=== PATIENT | female | born 1945 | race Caucasian/White ===

== ENCOUNTER → 2017-12-12 | Outpatient (CLI) | payer MEDICARE ==
[2017-12-12 07:54] LABS: Blood Urea Nitrogen 13 mg/dL (7-17)
--- NOTE | 2017-12-12 09:01 | CT ---
EXAMINATION TYPE: CT sinus w con DATE OF EXAM: 12/12/2017 COMPARISON: NONE HISTORY: 72-year-old female Atypical face pain CT DLP: 615.9 mGycm Automated exposure control for dose reduction was used. TECHNIQUE: Axial views of the paranasal sinuses were obtained following administration of 100 mL Omni paque 300 IV contrast. Coronal reconstructions performed. FINDINGS: PARANASAL SINUSES: There is mild mucosal thickening within the ethmoid air cells and inferior maxillary sinuses. The fro ntal sinuses are hypoplastic. The sphenoid sinuses are clear. There is no air-fluid level. Reactive stephanie- osteogenesis is not seen. There is no destruction of the osseous pinto of the paranasal sinuses. The osteomeatal complexes are patent. Minimal rightward nasal septal deviation. The imaged brain and orbits are normal in appearance. Mastoid air cells and middle ear cavities are well pneumatized. Reformatted images confirm above findings. IMPRESSION: Mild mucosal thickening within the ethmoid air cells and inferior maxillary sinuses. Minimal rightwar d nasal septal deviation
--- NOTE | 2017-12-12 10:15 | FL ---
EXAMINATION: Cervical and Thoracic Esophagram DATE OF EXAM: 12/12/2017 CLINICAL INDICATION: 72-year-old female with dysphagia, difficulty swallowing with sensation of solid s sticking in the cervical esophagus. GERD. COMPARISON: None Total Fluoroscopy Time: 1.27 minutes. Total images: 30. FINDINGS: The swallowing mechanism is normal and hypopharyngeal anatomy is preserved. There is moderate anterio r cervical spondylosis minimally impressing on to the posterior wall of the cervical esophagus. The thoracic portion has a normal course and caliber. Mild tertiary peristaltic contractions are demo nstrated. There is a moderate-sized hiatal hernia with mild mucosal irregularity which could represent fold red undancy. No chula filling defect identified. Valsalva and positional maneuvers failed to elicit gastroesophageal reflux. This is not excluded as p ossibility. IMPRESSION: 1. Moderate sized hiatal hernia. 2. Mild mucosal irregularity within the hernia could represent fold redundancy or some changes relati ng to a regional gastritis. Direct visualization can be considered to exclude other mucosal abnormali ty if indicated.
== END | disposition home or self-care (01) ==
LOC: RADCTMAIN 07:00
PROVIDERS: ATTEND Otolaryngology
DX: J34.2 Deviated nasal septum (principal); J34.89 Other specified disorders of nose and nasal sinuses; K44.9 Diaphragmatic hernia without obstruction or gangrene
CPT/HCPCS: 82565; 84520; 74220; 36415; 70487; Q9967

== ENCOUNTER → 2018-07-03 | Outpatient (CLI) | payer MEDICARE ==
--- NOTE | 2018-07-13 11:12 | MM ---
Reason for exam: screening (asymptomatic). Last mammogram was performed 1 year and 8 months ago. History: Patient is postmenopausal. Reductions of both breasts, January 2007. Took estrogen for 1 month beginning at age 63. Physical Findings: A clinical breast exam by your physician is recommended on an annual basis and results should be correlated with mammographic findings. MG 3D Screening Mammo W/Cad Bilateral CC and MLO view(s) were taken. Prior study comparison: November 06, 2016, bilateral MG 3d screening mammo w/cad. November 10, 2013, bilateral digital screening mammo w/CAD. The breast tissue is heterogeneously dense. This may lower the sensitivity of mammography. Benign appearing bilateral calcifications. No suspicious abnormality. No significant changes when compared with prior studies. ASSESSMENT: Benign, BI-RAD 2 RECOMMENDATION: Routine screening mammogram of both breasts in 1 year.
== END | disposition home or self-care (01) ==
LOC: RADMAMWWP 09:56
PROVIDERS: ATTEND Family Medicine
DX: Z12.31 Encounter for screening mammogram for malignant neoplasm of breast (principal)
CPT/HCPCS: 77063; 77067

== ENCOUNTER → 2018-07-15 | Outpatient (CLI) | payer MEDICARE ==
--- NOTE | 2018-07-15 16:03 | BD ---
EXAMINATION TYPE: Axial Bone Density DATE OF EXAM: 07/15/2018 COMPARISON: Previous a 13/12/2013 CLINICAL HISTORY: Postmenopausal status Height: 67 Weight: 166.7 FRAX RISK QUESTIONS: Alcohol (3 or more units per day): no Family History (Parent hip fracture): no Glucocorticoids (More than 3mos): no (Ex: prednisone, prednisolone, methylprednisolone, dexamethasone, and hydrocortisone). History of Fracture in Adulthood: no Secondary Osteoporosis: 1. Type 1 Diabetes: no 2. Hyperthyroidism: no 3. Menopause before 45: no 4. Malnutrition: no 5. Chronic liver disease: no Rheumatoid Arthritis: no Current Tobacco Use: no RISK FACTORS HISTORY OF: Active: no Postmenopausal woman: age 55 Lost more than 2 inches in height since high school: no MEDICATIONS: reflux meds Additional History: EXAM MEASUREMENTS: Bone mineral densitometry was performed using the [employer]. Bone mineral density as measured about the Lumbar spine is: ----- L1-L4(G/cm2): 1.005 T Score Values are as follows: ----- L2: -1.3 ----- L3: -1.7 ----- L4: -1.7 ----- L1-L4: -1.5 Bone mineral density has: decreased-4.4 % since study of: 07.14.2014 Bone mineral density about the R hip (g/cm2): 0.811 Bone mineral density about the L hip (g/cm2): 0.830 T Score values are as follows: -----R Neck: -1.6 -----L Neck: -1.5 -----R Total: -0.8 -----L Total: -1.8 Bone mineral density has: decreased -0.7 % since study of: 07.14.2014 IMPRESSION: Osteopenia (T Score between -2.5 and -1). There is slightly increased risk of fracture and the patient may be considered for treatment. Re-Screen 2-5 years. NOTE: T-SCORE=SD OF THE YOUNG ADULT MEAN.
== END | disposition home or self-care (01) ==
LOC: RADBDWWP 11:14
PROVIDERS: ATTEND Family Medicine
DX: M85.89 Other specified disorders of bone density and structure, multiple sites (principal); Z78.0 Asymptomatic menopausal state
CPT/HCPCS: 77080

== ENCOUNTER → 2018-07-16 | Outpatient (CLI) | payer MEDICARE ==
[2018-07-16 08:47] LABS: Anisocytosis Marked; HCT 36.6 % (34.0-46.0); HGB 10.3 gm/dL (11.4-16.0); Hypochromasia Marked; MCH 19.7 pg (25.0-35.0); MCHC 28.1 g/dL (31.0-37.0); MCV 70.1 fL (80.0-100.0); Mean Platelet Volume 6.6; Microcytosis Marked; Platelet Count 397 k/uL (150-450); RBC 5.23 m/uL (3.80-5.40); WBC 6.1 k/uL (3.8-10.6)
[2018-07-16 08:52] LABS: RDW 29.5 % (11.5-15.5)
[2018-07-16 16:46] LABS: Iron Saturation 11.05 (12.00-45.00)
[2018-07-16 20:05] LABS: Hemoglobin A1C 4.5 % (4.0-6.0)
== END | disposition home or self-care (01) ==
LOC: LABWHC1 08:06
PROVIDERS: ATTEND Family Medicine
DX: D50.9 Iron deficiency anemia, unspecified (principal); R73.01 Impaired fasting glucose
CPT/HCPCS: 36415; 82607; 82728; 82747; 83036; 83540; 83550; 85027

== ENCOUNTER → 2018-08-18 | Outpatient (CLI) | payer MEDICARE ==
[2018-08-18 09:05] LABS: Appearance,Urine Clear (Clear); Bilirubin,Urine Negative (Negative); Blood,Urine Negative (Negative); Color,Urine Colorless; Glucose,Urine (UA) Negative (Negative); Ketones,Urine Negative (Negative); Leukocyte Esterase,Urine Negative (Negative); Nitrite,Urine Negative (Negative); Protein,Urine Negative (Negative); Specific Gravity,Urine 1.006 (1.001-1.035); Urobilinogen,Urine <2.0 mg/dL (<2.0)
[2018-08-18 09:12] LABS: Anisocytosis Marked; HCT 42.4 % (34.0-46.0); HGB 12.8 gm/dL (11.4-16.0); Hypochromasia Marked; MCH 24.1 pg (25.0-35.0); MCHC 30.2 g/dL (31.0-37.0); Mean Platelet Volume 7.4; Microcytosis Marked; Platelet Count 234 k/uL (150-450); RBC 5.31 m/uL (3.80-5.40); WBC 4.8 k/uL (3.8-10.6)
[2018-08-18 09:15] LABS: RDW 25.5 % (11.5-15.5)
[2018-08-18 09:16] LABS: MCV 79.7 fL (80.0-100.0)
[2018-08-18 09:21] LABS: ALT 23 U/L (9-52); AST 21 U/L (14-36); Albumin 4.3 g/dL (3.5-5.0); Alkaline Phosphatase 51 U/L (38-126); Anion Gap 8 mmol/L; Blood Urea Nitrogen 15 mg/dL (7-17); Calcium 9.8 mg/dL (8.4-10.2); Carbon Dioxide 30 mmol/L (22-30); Chloride 101 mmol/L (98-107); Cholesterol 218 mg/dL (<200); Glucose 91 mg/dL (74-99); HDL Cholesterol 64 mg/dL (40-60); LDL Cholesterol,Calculated 127 mg/dL (0-99); Potassium 4.4 mmol/L (3.5-5.1); Sodium 139 mmol/L (137-145); Total Bilirubin 0.3 mg/dL (0.2-1.3); Total Protein 7.3 g/dL (6.3-8.2); Triglycerides 135 mg/dL (<150)
[2018-08-18 17:07] LABS: Iron Saturation 17.02 (12.00-45.00)
== END | disposition home or self-care (01) ==
LOC: LABWHC1 07:42
PROVIDERS: ATTEND Family Medicine
DX: Z00.01 Encounter for general adult medical examination with abnormal findings (principal); E66.3 Overweight; R53.83 Other fatigue; D50.9 Iron deficiency anemia, unspecified
CPT/HCPCS: 36415; 80053; 80061; 81003; 82607; 82728; 82747; 83540; 83550; 85027

== ENCOUNTER → 2020-06-16 | Outpatient (CLI) | payer MEDICARE ==
[2020-06-16 10:13] LABS: Anisocytosis Slight; HCT 27.8 % (34.0-46.0); HGB 7.3 gm/dL (11.4-16.0); Hypochromasia Marked; MCH 17.3 pg (25.0-35.0); MCHC 26.3 g/dL (31.0-37.0); MCV 65.9 fL (80.0-100.0); Mean Platelet Volume 7.9; Microcytosis Marked; Platelet Count 407 k/uL (150-450); Poikilocytosis Slight; RBC 4.23 m/uL (3.80-5.40); RDW 17.3 % (11.5-15.5); WBC 6.5 k/uL (3.8-10.6)
[2020-06-16 16:51] LABS: % Iron Saturation 1.58 (12.00-45.00); African American GFR (CKD) 104.1 (60.0-200.0); Albumin 4.6 g/dL (3.80-4.90); Anion Gap 9.9 mmol/L (4.00-12.00); Calcium 9.4 mg/dL (8.7-10.3); Carbon Dioxide 24.1 mmol/L (21.6-31.8); Chol/HDL Ratio 2.09; Ferritin 1.7 ng/mL (10.0-291.0); Globulin 2.3 g/dL (1.6-3.3); Non-African American GFR(CKD) 89.8 (60.0-200.0); Potassium 4.3 mmol/L (3.5-5.5); Total Bilirubin 0.5 mg/dL (0.2-1.2); Total Protein 6.9 g/dL (6.2-8.2)
== END ==
LOC: LABWHC1 08:28
PROVIDERS: ATTEND Family Medicine
DX: D50.9 Iron deficiency anemia, unspecified (principal); E66.9 Obesity, unspecified
CPT/HCPCS: 36415; 80053; 80061; 82607; 82728; 82747; 83540; 83550; 85027

== ENCOUNTER 2020-06-19 16:42 | Inpatient (IN) | payer MEDICARE ==
[2020-06-19] MEDS ORDERED: PANTOPRAZOLE 40 MG/10 ML VIAL IVP STA (17:21)
--- NOTE | 2020-06-19 17:23 | ED ---
General Adult HPI - General Chief complaint: Recheck/Abnormal Lab/Rx Stated complaint: Low hemoglobin, Abd labs Time Seen by Provider: 06/19/20 16:52 Source: patient, RN notes reviewed Mode of arrival: ambulatory Limitations: no limitations - History of Present Illness Initial comments: Patient is a pleasant 75-year-old female presenting to the emergency department with fatigue. Patient states symptoms have been occurring for several days. Patient saw her doctor and had blood work done. Patient was told hemoglobin was low and come to the emergency department. Patient did have similar symptoms one year ago and hemoglobin was 5. Patient did have endoscopy with concern for stomach ulcer at that time. Patient denies any rectal bleeding or dark tarry stools. Patient states symptoms worsen with exertion. - Related Data Home Medications Medication Instructions Recorded Confirmed Acetaminophen [Tylenol] 1,000 mg PO BID PRN 06/19/20 06/19/20 Atorvastatin Calcium [Lipitor] 10 mg PO HS 06/19/20 06/19/20 Escitalopram [Lexapro] 10 mg PO DAILY 06/19/20 06/19/20 Allergies Allergy/AdvReac Type Severity Reaction Status Date / Time erythromycin base Allergy Unknown Rash/Hives Verified 06/19/20 18:03 Review of Systems ROS Statement: Those systems with pertinent positive or pertinent negative responses have been documented in the HPI. ROS Other: All systems not noted in ROS Statement are negative. Constitutional: Denies: fever ENT: Denies: ear pain Respiratory: Denies: cough Cardiovascular: Denies: chest pain Endocrine: Reports: fatigue Gastrointestinal: Denies: abdominal pain, hematemesis, melena, hematochezia Genitourinary: Denies: dysuria Musculoskeletal: Denies: back pain Skin: Denies: rash Neurological: Denies: weakness Past Medical History Past Medical History: GERD/Reflux, Osteoarthritis (OA) Additional Past Medical History / Comment(s): Currently being tested for hepat itis C-awaiting test results, small hiatal hernia, gastritis, bronchitis, fall with bilateral elbow injury, R hand fracture, hemorrhoids. History of Any Multi-Drug Resistant Organisms: None Reported Past Surgical History: Orthopedic Surgery, Tonsillectomy, Tubal Ligation Additional Past Surgical History / Comment(s): L knee arthroscopy for meniscus, L elbow injury with fluid removed, R foot lumpectomy, R wrist ganglion cyst, EGD/colonoscopy, Past Anesthesia/Blood Transfusion Reactions: No Reported Reaction Past Psychological History: No Psychological Hx Reported Past Alcohol Use History: Occasional Past Drug Use History: None Reported - Past Family History Mother Family Medical History: Coronary Artery Disease (CAD), Dementia Additional Family Medical History / Comment(s): Mother at the age of 89yrs. She had a problem with vaginal bleeding prior to her that was not able to be worked up. Father Family Medical History: Liver Disease Additional Family Medical History / Comment(s): Father at the age of 46yrs with CIRRHOSIS of the liver. ETOH abuse. General Exam Limitations: no limitations General appearance: alert, in no apparent distress Head exam: Present: normocephalic Eye exam: Present: normal appearance Neck exam: Present: normal inspection Respiratory exam: Present: normal lung sounds bilaterally Cardiovascular Exam: Present: regular rate, normal rhythm GI/Abdominal exam: Present: soft. Absent: distended, tenderness Extremities exam: Present: normal inspection Neurological exam: Present: alert Psychiatric exam: Present: normal affect, normal mood Skin exam: Present: normal color Course Vital Signs 06/19/20 06/19/20 16:46 17:41 Temperature 98.0 F Pulse Rate 91 74 Respiratory 18 18 Rate Blood Pressure 158/95 148/84 O2 Sat by Pulse 99 99 Oximetry EKG Findings - EKG Comments: EKG Findings:: Sinus rhythm at 73. GA 152. QRS 88. QT 392. QTC 431. Normal axis. Q wave in lead V4. No acute ST change. Medical Decision Making - Medical Decision Making Patient reevaluated and updated. Case discussed with Dr. Lucero, who will admit covering for Dr. patel - Lab Data Result diagrams: 06/19/20 17:32 06/19/20 17:32 Lab Results 06/19/20 06/19/20 06/19/20 Range/Units 17:32 17:32 17:32 WBC 6.5 (3.8-10.6) k/uL RBC 4.19 (3.80-5.40) m/uL Hgb 7.6 L (11.4-16.0) gm/dL Hct 27.1 L (34.0-46.0) % MCV 64.8 L (80.0-100.0) fL MCH 18.2 L (25.0-35.0) pg MCHC 28.0 L (31.0-37.0) g/dL RDW 17.3 H (11.5-15.5) % Plt Count 379 (150-450) k/uL Neutrophils % 55 % Lymphocytes % 29 % Monocytes % 10 % Eosinophils % 3 % Basophils % 1 % Neutrophils # 3.6 (1.3-7.7) k/uL Lymphocytes # 1.9 (1.0-4.8) k/uL Monocytes # 0.6 (0-1.0) k/uL Eosinophils # 0.2 (0-0.7) k/uL Basophils # 0.1 (0-0.2) k/uL Hypochromasia Marked Poikilocytosis Slight Anisocytosis Slight Microcytosis Marked PT 9.8 (9.0-12.0) sec INR 0.9 (<1.2) APTT 19.8 L (22.0-30.0) sec Sodium (137-145) mmol/L Potassium (3.5-5.1) mmol/L Chloride (98-107) mmol/L Carbon Dioxide (22-30) mmol/L Anion Gap mmol/L BUN (7-17) mg/dL Creatinine (0.52-1.04) mg/dL Est GFR (CKD-EPI)AfAm (>60 ml/min/1.73 sqM) Est GFR (CKD-EPI)NonAf (>60 ml/min/1.73 sqM) Glucose (74-99) mg/dL Calcium (8.4-10.2) mg/dL Total Bilirubin (0.2-1.3) mg/dL AST (14-36) U/L ALT (4-34) U/L Alkaline Phosphatase (38-126) U/L Total Protein (6.3-8.2) g/dL Albumin (3.5-5.0) g/dL Stool Occult Blood Negative (Negative) 06/19/20 Range/Units 17:32 WBC (3.8-10.6) k/uL RBC (3.80-5.40) m/uL Hgb (11.4-16.0) gm/dL Hct (34.0-46.0) % MCV (80.0-100.0) fL MCH (25.0-35.0) pg MCHC (31.0-37.0) g/dL RDW (11.5-15.5) % Plt Count (150-450) k/uL Neutrophils % % Lymphocytes % % Monocytes % % Eosinophils % % Basophils % % Neutrophils # (1.3-7.7) k/uL Lymphocytes # (1.0-4.8) k/uL Monocytes # (0-1.0) k/uL Eosinophils # (0-0.7) k/uL Basophils # (0-0.2) k/uL Hypochromasia Poikilocytosis Anisocytosis Microcytosis PT (9.0-12.0) sec INR (<1.2) APTT (22.0-30.0) sec Sodium 134 L (137-145) mmol/L Potassium 4.0 (3.5-5.1) mmol/L Chloride 102 (98-107) mmol/L Carbon Dioxide 24 (22-30) mmol/L Anion Gap 8 mmol/L BUN 16 (7-17) mg/dL Creatinine 0.52 (0.52-1.04) mg/dL Est GFR (CKD-EPI)AfAm >90 (>60 ml/min/1.73 sqM) Est GFR (CKD-EPI)NonAf >90 (>60 ml/min/1.73 sqM) Glucose 94 (74-99) mg/dL Calcium 9.5 (8.4-10.2) mg/dL Total Bilirubin 0.3 (0.2-1.3) mg/dL AST 26 (14-36) U/L ALT 18 (4-34) U/L Alkaline Phosphatase 63 (38-126) U/L Total Protein 7.3 (6.3-8.2) g/dL Albumin 4.7 (3.5-5.0) g/dL Stool Occult Blood (Negative) Disposition Clinical Impression: Symptomatic anemia Disposition: ADMITTED IP TO THIS HOSP Is patient prescribed a controlled substance at d/c from ED?: No Referrals: Rex Patel MD [Primary Care Provider] - 1-2 days Time of Disposition: 18:29 Decision Time: 18:29
[2020-06-19 17:53] LABS: ALT 18 U/L (4-34); AST 26 U/L (14-36); African American GFR (CKD) >90 (>60 ml/min/1.73 sqM); Albumin 4.7 g/dL (3.5-5.0); Alkaline Phosphatase 63 U/L (38-126); Anion Gap 8 mmol/L; Blood Urea Nitrogen 16 mg/dL (7-17); Calcium 9.5 mg/dL (8.4-10.2); Carbon Dioxide 24 mmol/L (22-30); Chloride 102 mmol/L (98-107); Glucose 94 mg/dL (74-99); Non-African American GFR(CKD) >90 (>60 ml/min/1.73 sqM); Sodium 134 mmol/L (137-145); Total Bilirubin 0.3 mg/dL (0.2-1.3); Total Protein 7.3 g/dL (6.3-8.2)
[2020-06-19 18:06] LABS: Anisocytosis Slight; Basophils # (A) 0.1 k/uL (0-0.2); Basophils % (A) 1 %; Eosinophils # (A) 0.2 k/uL (0-0.7); Eosinophils % (A) 3 %; HCT 27.1 % (34.0-46.0); HGB 7.6 gm/dL (11.4-16.0); Hypochromasia Marked; Lymphocytes # (A) 1.9 k/uL (1.0-4.8); Lymphocytes % (A) 29 %; MCH 18.2 pg (25.0-35.0); MCV 64.8 fL (80.0-100.0); Mean Platelet Volume 7.1; Microcytosis Marked; Monocytes # (A) 0.6 k/uL (0-1.0); Monocytes % (A) 10 %; Neutrophils # (A) 3.6 k/uL (1.3-7.7); Neutrophils % (A) 55 %; Platelet Count 379 k/uL (150-450); Poikilocytosis Slight; RBC 4.19 m/uL (3.80-5.40); RDW 17.3 % (11.5-15.5); WBC 6.5 k/uL (3.8-10.6)
[2020-06-19 18:17] LABS: INR 0.9 (<1.2); Prothrombin Time 9.8 sec (9.0-12.0)
[2020-06-19 18:19] LABS: Partial Thromboplastin Time 19.8 sec (22.0-30.0)
[2020-06-19] MEDS ORDERED: SODIUM CHLORIDE 0.9% 1,000 ML IV SCH (18:30)
[2020-06-19] MEDS ORDERED: NALOXONE 0.4 MG/ML 1 ML VIAL IV PRN (18:30)
[2020-06-19] MEDS ORDERED: ACETAMINOPHEN TAB 500 MG TAB PO PRN (21:04)
[2020-06-19] MEDS ORDERED: LACTULOSE 20 GM/30 ML CUP PO PRN (21:05)
[2020-06-19] MEDS ORDERED: CALCIUM CARBONATE 500 MG CHEWABLE PO PRN (21:05)
[2020-06-19] MEDS ORDERED: MELATONIN 3 MG TABLET PO PRN (21:05)
[2020-06-19] MEDS ORDERED: ONDANSETRON 4 MG/2 ML VIAL IVP PRN (21:05)
[2020-06-19] MEDS ORDERED: MAGNESIUM HYDROXIDE 2,400 MG/10 ML CUP PO PRN (21:05)
[2020-06-19] MEDS ORDERED: MAG HYDROX/AL HYDROX/SIMETH 30 ML CUP PO PRN (21:05)
[2020-06-19] MEDS ORDERED: ATORVASTATIN 10 MG TAB PO SCH (21:15)
[2020-06-19] MEDS: ALPRAZolam 0.25 MG TAB PO PRN (23:40)
[2020-06-20] MEDS: ESCITALOPRAM 10 MG TAB PO SCH ×2 (08:18→08:24)
[2020-06-20 08:49] LABS: Anisocytosis Slight; Basophils # (A) 0.1 k/uL (0-0.2); Basophils % (A) 2 %; Eosinophils # (A) 0.1 k/uL (0-0.7); Eosinophils % (A) 3 %; HCT 28.9 % (34.0-46.0); HGB 8.2 gm/dL (11.4-16.0); Hypochromasia Marked; Lymphocytes # (A) 1.1 k/uL (1.0-4.8); Lymphocytes % (A) 25 %; MCH 18.9 pg (25.0-35.0); MCHC 28.2 g/dL (31.0-37.0); MCV 67.1 fL (80.0-100.0); Microcytosis Marked; Monocytes # (A) 0.5 k/uL (0-1.0); Monocytes % (A) 10 %; Neutrophils # (A) 2.7 k/uL (1.3-7.7); Neutrophils % (A) 58 %; Platelet Count 342 k/uL (150-450); Poikilocytosis Moderate; RBC 4.31 m/uL (3.80-5.40); RDW 18.5 % (11.5-15.5); WBC 4.6 k/uL (3.8-10.6)
[2020-06-20] MEDS ORDERED: PANTOPRAZOLE 40 MG/10 ML VIAL IV SCH (09:00)
[2020-06-20 10:37] VITALS: BP 121/74; PULSE 80; RESP 16; TEMP 98.1
[2020-06-20] MEDS: ALPRAZolam 0.25 MG TAB PO PRN (10:57)
[2020-06-20] MEDS ORDERED: PANTOPRAZOLE 40 MG TABLET PO SCH (17:30)
--- NOTE | 2020-06-21 00:52 | P.HPIM ---
History of Present Illness H&P Date: 06/20/20 Chief Complaint: tired History of presenting complaint: This is a pleasant 75-year-old patient of Dr. Patel. Patient presents with putting on some weight last 2 weeks. Feels tired. Short of breath. A bit rundown. Patient was in [place] for the winter. Because of the COVID lockdown has been drinking quite a bit of wine.. Patient about a year ago had EGD by Dr. felipe was found to have hiatal hernia and ulcers at [facility]. She thinks a colonoscopy was unremarkable.. Patient's hemoglobin was 7.6 on presentation. Because of symptoms was given a unit of blood. Pending much better this morning. No nausea vomiting. No abdominal pain. Review of systems: GEN.: [Tired EYES: None HEENT: None NECK: None RESPIRATORY: Short of breath CARDIOVASCULAR: None GASTROINTESTINAL: None GENITOURINARY: None MUSCULOSKELETAL: None LYMPHATICS: None HEMATOLOGICAL: None PSYCHIATRY: None NEUROLOGICAL: None Past medical history to include: Heart hernia, peptic ulcer disease, GERD, osteoarthritis, hemorrhoids Social history: . Patient smoked for 33 years stopped in 1999. Has been drinking somewhat excessive wine recently. Physical examination: VITAL SIGNS: 98, 91, 18, 158/95, 99% room air GENERAL: BMI 26.9, sitting up awake. EYES: [Pupils equal. Conjunctiva pale l. HEENT: External appearance of nose and ears normal, oral cavity grossly normal. NECK: JVD not raised; masses not palpable. HEART: First and second heart sounds are normal; no edema. LUNGS: Respiratory rate normal; clear to auscultation. ABDOMEN: Soft, nontender, liver spleen not palpable, no masses palpable. PSYCH: Alert and oriented x3; mood and affect normal. NEUROLOGICAL: Cranial nerves grossly intact; no facial asymmetry, power and sensation grossly intact. LYMPHATICS: No lymph nodes palpable in the axilla and neck INVESTIGATIONS, reviewed in the clinical context: White count 6.5 hemoglobin 7.6 potassium 4 creatinine 0.52 Stool-occultl blood-negative COVID 19 PCR not detected Assessment: -Acute symptomatic anemia likely from a slow GI bleed active from peptic ulcer disease and/or esophagitis in a patient with EGD last year and was found to have the same. Patient has been drinking some significant amount of alcohol in terms of finding likely precipitating the same. -Alcohol use disorder -Hiatal hernia -Peptic ulcer disease -Primary osteoarthritis -mood disorder Plan: Patient was ordered a unit of blood. Put on PPI. IV fluids. Past Medical History Past Medical History: GERD/Reflux, Osteoarthritis (OA) Additional Past Medical History / Comment(s): Small hiatal hernia, gastritis, bronchitis, fall with bilateral elbow injury, R hand fracture, hemorrhoids. History of Any Multi-Drug Resistant Organisms: None Reported Past Surgical History: Orthopedic Surgery, Tonsillectomy, Tubal Ligation Additional Past Surgical History / Comment(s): L knee arthroscopy for meniscus, L elbow injury with fluid removed, R foot lumpectomy, R wrist ganglion cyst, EGD/colonoscopy, Past Anesthesia/Blood Transfusion Reactions: No Reported Reaction Past Psychological History: No Psychological Hx Reported Additional Psychological History / Comment(s): "I have moodiness if I don't take my lexapro." Pt resides with her spouse. She is independent. Smoking Status: Former smoker Past Alcohol Use History: Heavy Additional Past Alcohol Use History / Comment(s): Binge drinks wine, about a bottle each time. Pt states she started smoking in 1966 and quit 11/06/00. Past Drug Use History: None Reported - Past Family History Mother Family Medical History: Coronary Artery Disease (CAD), Dementia Additional Family Medical History / Comment(s): Mother at the age of 89yrs. She had a problem with vaginal bleeding prior to her that was not able to be worked up. Father Family Medical History: Liver Disease Additional Family Medical History / Comment(s): Father at the age of 46yrs with CIRRHOSIS of the liver. ETOH abuse. Medications and Allergies Home Medications Medication Instructions Recorded Confirmed Type Acetaminophen [Tylenol] 1,000 mg PO BID PRN 06/19/20 06/19/20 History Atorvastatin Calcium [Lipitor] 10 mg PO HS 06/19/20 06/19/20 History Escitalopram [Lexapro] 10 mg PO DAILY 06/19/20 06/19/20 History Calcium Carbonate [Tums] 500 mg PO Q4HR PRN chew 06/20/20 Rx Pantoprazole [Protonix] 40 mg PO AC-BID #60 tablet. 06/20/20 Rx Allergies Allergy/AdvReac Type Severity Reaction Status Date / Time erythromycin base Allergy Unknown Rash/Hives Verified 06/19/20 18:03 Physical Exam Vitals: Vital Signs Temp Pulse Pulse Resp BP BP Pulse Ox 06/20/20 05:00 97.8 F 67 18 149/80 98 06/20/20 01:14 97.8 F 76 19 137/76 97 06/19/20 22:55 98.2 F 16 134/71 95 06/19/20 22:25 98.2 F 79 18 138/77 97 06/19/20 22:15 98 F 78 17 147/64 98 06/19/20 21:05 98 06/19/20 20:00 98.0 F 74 14 143/82 98 06/19/20 19:05 84 18 148/84 97 06/19/20 17:41 74 18 148/84 99 06/19/20 16:46 98.0 F 91 18 158/95 99 Intake and Output 06/19/20 06/20/20 06/20/20 22:59 06:59 14:59 Intake Total 640 1460 Balance 640 1460 Intake: Intake, IV Titration 40 60 Amount Sodium Chloride 0.9% 1, 40 60 000 ml @ 20 mls/hr IV . Q24H [facility] Rx#:[id number] Oral 600 1090 Blood Product 0 310 Rc As-1 Unit 0 310 [id number] Other: Voiding Method Toilet Toilet # Voids 1 1 Weight 80.286 kg Results CBC & Chem 7: 06/20/20 07:35 06/19/20 17:32 Labs: Abnormal Lab Results - Last 24 Hours (Table) 06/19/20 06/19/20 06/19/20 Range/Units 17:21 17:32 17:32 Hgb 7.6 L (11.4-16.0) gm/dL Hct 27.1 L (34.0-46.0) % MCV 64.8 L (80.0-100.0) fL MCH 18.2 L (25.0-35.0) pg MCHC 28.0 L (31.0-37.0) g/dL RDW 17.3 H (11.5-15.5) % APTT 19.8 L (22.0-30.0) sec Sodium (137-145) mmol/L Crossmatch See Detail 06/19/20 06/20/20 Range/Units 17:32 07:35 Hgb 8.2 L (11.4-16.0) gm/dL Hct 28.9 L (34.0-46.0) % MCV 67.1 L (80.0-100.0) fL MCH 18.9 L (25.0-35.0) pg MCHC 28.2 L (31.0-37.0) g/dL RDW 18.5 H (11.5-15.5) % APTT (22.0-30.0) sec Sodium 134 L (137-145) mmol/L Crossmatch Thrombosis Risk Factor Assmnt - Choose All That Apply Each Factor Represents 1 point: Obesity (BMI >25) Each Risk Factor Represents 2 Points: Age 61-74 years Other congenital or acquired thrombophilia - If yes, enter type in comment: No Thrombosis Risk Factor Assessment Total Risk Factor Score: 3 Thrombosis Risk Factor Assessment Level: Moderate Risk
--- NOTE | 2020-06-21 00:54 | P.DS ---
Providers Date of admission: 06/19/20 18:30 Expected date of discharge: 06/20/20 Attending physician: Rick Lucero [facility] [place] Course: Chief Complaint: tired History of presenting complaint: This is a pleasant 75-year-old patient of Dr. Patel. Patient presents with putting on some weight last 2 weeks. Feels tired. Short of breath. A bit rundown. Patient was in [place] for the winter. Because of the COVID lockdown has been drinking quite a bit of wine.. Patient about a year ago had EGD by Dr. stein was found to have hiatal hernia and ulcers at [facility]. She thinks a colonoscopy was unremarkable.. Patient's hemoglobin was 7.6 on presentation. Because of symptoms was given a unit of blood. Pending much better this morning. No nausea vomiting. No abdominal pain. patient received a unit of blood. Patient came to go home. Discussed with -no overt manifestation of active bleeding. Patient is clinically stable. He will do a EGD colonoscopy as an outpatient. This was discussed with the patient.patient to take PPIs. Strongly advised against use of alcohol. Discussion and discharge planning more than 35 minutes Physical examination: VITAL SIGNS: 98, 74, 14, 143/82, 98% on room air GENERAL: BMI 26.9, sitting up awake. EYES: [Pupils equal. Conjunctiva pale . HEENT: External appearance of nose and ears normal, oral cavity grossly normal. NECK: JVD not raised; masses not palpable. HEART: First and second heart sounds are normal; no edema. LUNGS: Respiratory rate normal; clear to auscultation. ABDOMEN: Soft, nontender, liver spleen not palpable, no masses palpable. PSYCH: Alert and oriented x3; mood and affect normal. INVESTIGATIONS, reviewed in the clinical context: Hemoglobin 8.2 Admission testing White count 6.5 hemoglobin 7.6 potassium 4 creatinine 0.52 Stool-occultl blood-negative COVID 19 PCR not detected Assessment: -Acute symptomatic anemia likely from a slow GI bleed active from peptic ulcer disease and/or esophagitis in a patient with EGD last year and was found to have the same. Patient has been drinking some significant amount of alcohol in terms of finding likely precipitating the same. -Alcohol use disorder -Hiatal hernia -Peptic ulcer disease -Primary osteoarthritis -mood disorder disposition: Home Patient Condition at Discharge: Stable Plan - Discharge Summary Discharge Rx Participant: No New Discharge Prescriptions: New Pantoprazole [Protonix] 40 mg PO AC-BID #60 tablet. Calcium Carbonate [Tums] 500 mg PO Q4HR PRN chew PRN Reason: Dyspepsia Continue Atorvastatin Calcium [Lipitor] 10 mg PO HS Acetaminophen [Tylenol] 1,000 mg PO BID PRN PRN Reason: Pain Escitalopram [Lexapro] 10 mg PO DAILY Discharge Medication List Acetaminophen [Tylenol] 1,000 mg PO BID PRN 06/19/20 [History] Atorvastatin Calcium [Lipitor] 10 mg PO HS 06/19/20 [History] Escitalopram [Lexapro] 10 mg PO DAILY 06/19/20 [History] Calcium Carbonate [Tums] 500 mg PO Q4HR PRN chew 06/20/20 [Rx] Pantoprazole [Protonix] 40 mg PO AC-BID #60 tablet. 06/20/20 [Rx] Follow up Appointment(s)/Referral(s): Leonard Stein DO [Doctor of Osteopathic Medicine] - 06/28/20 2:15 pm Rex Patel MD [Primary Care Provider] - 06/23/20 11:40 am Patient Instructions/Handouts: Iron Rich Diet (GEN), Anemia (GEN), Alcohol Dependence (GEN) Activity/Diet/Wound Care/Special Instructions: cbc blood work - 7 days no alcohol Rise from bed or chair slowly, sit first before rising. Drink plenty of fluids, avoid alcoholic beverages. Be mindful of falling. Follow up with Dr Stein as an out patient so that he can schedule you for a scope. Discharge Disposition: HOME SELF-CARE
--- NOTE | 2020-06-22 07:24 | CDI ---
Documentation Clarification Form Date: 06/21/20 From: Nandini Arvizu Phone: If you have a question about this query, please contact Skye Kelley, Application Developer at [phone] between 8am and 5pm. Admit Date: 06/19/20 Discharge Date:06/20/20 Patient Name: Juliette Cheung Visit Number: [id number] ATTENTION: The Clinical Documentation Specialists (CDI) and [facility] Coding Staff appreciate your assistance in clarifying documentation. Please respond to the clarification below the line at the bottom and electronically sign. The CDI & [facility] Coding staff will review the response and follow-up if needed. Please note: Queries are made part of the Legal Health Record. If you have any questions, please contact the author of this message via ITS. Dear Dr. Lucero Alcohol use disorder is documented in the H&P and discharge summary. Documentation also states the patient has been drinking some significant amount of alcohol. History/Risk Factors: History of alcohol use Clinical Indicators: PUD, esophagitis, alcohol likely precipitating GI bleed Labs: Hgb/Hct 7.6/27.1 Treatment: NS at 20 mls/hr In your professional opinion, can you please clarify if the above clinical indicators and treatment signify any of the following? Alcohol dependence Alcohol abuse Other, please specify Unable to determine AND Evidence of thiamine deficiency due to chronic alcohol use/alcoholism Prophylactic treatment of potential thiamine deficiency associated with alcohol use/alcoholism Unable to determine Other, please specify See discharge summary-no further change in documentation needed MTDD
== END 2020-06-20 12:42 | disposition home or self-care (01) | DRG 811 ==
LOC: EC 16:42 → 5NMEDONC 18:30 → 6PED 06-20 10:18
PROVIDERS: ADMIT Hospitalist; ATTEND Hospitalist
DX: D50.0 Iron deficiency anemia secondary to blood loss (chronic) (principal); K27.4 Chronic or unspecified peptic ulcer, site unspecified, with hemorrhage; F39 Unspecified mood [affective] disorder; K44.9 Diaphragmatic hernia without obstruction or gangrene; M19.91 Primary osteoarthritis, unspecified site; K64.9 Unspecified hemorrhoids; K21.0 Gastro-esophageal reflux disease with esophagitis; K22.8 Other specified diseases of esophagus; Z72.89 Other problems related to lifestyle; Z20.828 Contact with and (suspected) exposure to other viral communicable diseases; Z79.899 Other long term (current) drug therapy; F10.10 Alcohol abuse, uncomplicated; Z87.891 Personal history of nicotine dependence; Z98.51 Tubal ligation status; Z90.89 Acquired absence of other organs; Z91.81 History of falling; Z82.49 Family history of ischemic heart disease and other diseases of the circulatory system; Z82.0 Family history of epilepsy and other diseases of the nervous system; Z83.79 Family history of other diseases of the digestive system; Z81.1 Family history of alcohol abuse and dependence
CPT/HCPCS: 36415; 80053; 82272; 85025; 85610; 85730; 86850; 86900; 86901; 86920; 93005; 96374; 99285

== ENCOUNTER → 2020-06-26 | Outpatient (CLI) | payer MEDICARE ==
[2020-06-26 10:15] LABS: Anisocytosis Moderate; HCT 31.9 % (34.0-46.0); HGB 8.9 gm/dL (11.4-16.0); Hypochromasia Marked; MCHC 27.9 g/dL (31.0-37.0); Mean Platelet Volume 6.9; Microcytosis Marked; Platelet Count 361 k/uL (150-450); Poikilocytosis Slight; RBC 4.69 m/uL (3.80-5.40); RDW 20.2 % (11.5-15.5); WBC 6.7 k/uL (3.8-10.6)
[2020-06-26 17:50] LABS: % Iron Saturation 2.81 (12.00-45.00); Ferritin 31.5 ng/mL (10.0-291.0)
== END | disposition home or self-care (01) ==
LOC: LABWHC1 08:06
PROVIDERS: ATTEND Family Medicine
DX: D50.9 Iron deficiency anemia, unspecified (principal)
CPT/HCPCS: 36415; 82607; 82728; 82747; 83540; 83550; 85027

== ENCOUNTER → 2020-07-17 | Outpatient (CLI) | payer MEDICARE ==
[2020-07-17 07:42] LABS: Anisocytosis Moderate; HCT 32.6 % (34.0-46.0); HGB 9.2 gm/dL (11.4-16.0); Hypochromasia Marked; MCH 19.3 pg (25.0-35.0); MCHC 28.2 g/dL (31.0-37.0); MCV 68.5 fL (80.0-100.0); Mean Platelet Volume 7.3; Microcytosis Marked; Platelet Count 352 k/uL (150-450); Poikilocytosis Slight; RBC 4.76 m/uL (3.80-5.40); RDW 21.2 % (11.5-15.5); WBC 5.1 k/uL (3.8-10.6)
[2020-07-17 10:27] LABS: % Iron Saturation 3.62 (12.00-45.00); African American GFR (CKD) 104.1 (60.0-200.0); Albumin 4.6 g/dL (3.80-4.90); Anion Gap 8.4 mmol/L (4.00-12.00); Calcium 9.5 mg/dL (8.7-10.3); Carbon Dioxide 26.6 mmol/L (21.6-31.8); Chol/HDL Ratio 2.65; Globulin 2.3 g/dL (1.6-3.3); LDL Cholesterol,Calculated 79.8 mg/dL (0.0-131.0); Non-African American GFR(CKD) 89.8 (60.0-200.0); Potassium 4.4 mmol/L (3.5-5.5); Total Bilirubin 0.4 mg/dL (0.2-1.2); Total Protein 6.9 g/dL (6.2-8.2); VLDL Calculation 22.2 mg/dL (5.00-40.00)
[2020-07-17 10:39] LABS: Ferritin 3.3 ng/mL (10.0-291.0)
== END | disposition home or self-care (01) ==
LOC: LABWHC1 07:11
PROVIDERS: ATTEND Family Medicine
DX: Z00.01 Encounter for general adult medical examination with abnormal findings (principal); D50.9 Iron deficiency anemia, unspecified; E66.3 Overweight
CPT/HCPCS: 36415; 80053; 80061; 82607; 82728; 82747; 83540; 83550; 85027

== ENCOUNTER → 2020-07-25 | Outpatient (CLI) | payer MEDICARE ==
--- NOTE | 2020-07-25 16:03 | US ---
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 Patient states she has a cyst on her l eft kidney that was found during a CT in [place]. EXAM MEASUREMENTS: Right Kidney: 11.1 x 5.2 x 4.6 cm Left Kidney: 10.7 x 5.7 x 4.6 cm Right Kidney: no hydronephrosis or masses seen Left Kidney: no hydronephrosis, 2.2 x 1.9 x 1.9cm cystic area mid pole, small 1.2cm cystic area later al mid pole. Bladder: appears wnl Bilateral Jets seen: no There is no evidence for hydronephrosis at this point in time. No nephrolithiasis is seen. No johana rning solid masses are identified. The urinary bladder is anechoic. Bilateral ureteral jets are not seen. Technologist identifies 2 small thin-walled cyst in the left kidney measuring between 1 and 2 cm in size. IMPRESSION: No concerning solid or cystic renal mass on today's study.
== END | disposition home or self-care (01) ==
LOC: RADUSWWP 15:08
DX: D17.71 Benign lipomatous neoplasm of kidney (principal)
CPT/HCPCS: 76770

== ENCOUNTER → 2021-08-17 | Outpatient (CLI) | payer MEDICARE ==
--- NOTE | 2021-08-20 09:37 | MM ---
Reason for exam: screening (asymptomatic). Last mammogram was performed 3 years and 1 month ago. History: Patient is postmenopausal. Reductions of both breasts, January 2007. Took estrogen for 1 month beginning at age 63. Physical Findings: A clinical breast exam by your physician is recommended on an annual basis and results should be correlated with mammographic findings. MG 3D Screening Mammo W/Cad Bilateral CC and MLO view(s) were taken. Prior study comparison: July 03, 2018, bilateral MG 3d screening mammo w/cad. The breast tissue is heterogeneously dense. This may lower the sensitivity of mammography. There are benign appearing round dystrophic calcifications bilaterally. There is no discrete abnormality. ASSESSMENT: Benign, BI-RAD 2 RECOMMENDATION: Routine screening mammogram of both breasts in 1 year.
== END | disposition home or self-care (01) ==
LOC: RADMAMWWP 09:45
PROVIDERS: ATTEND Family Medicine
DX: Z12.31 Encounter for screening mammogram for malignant neoplasm of breast (principal)
CPT/HCPCS: 77063; 77067

== ENCOUNTER → 2021-08-24 | Outpatient (CLI) | payer MEDICARE ==
[2021-08-24 07:48] LABS: Anisocytosis Slight; HCT 35.8 % (34.0-46.0); HGB 10.9 gm/dL (11.4-16.0); Hypochromasia Marked; MCH 25.1 pg (25.0-35.0); MCHC 30.4 g/dL (31.0-37.0); MCV 82.7 fL (80.0-100.0); Mean Platelet Volume 7.1; Platelet Count 412 k/uL (150-450); Poikilocytosis Moderate; RBC 4.32 m/uL (3.80-5.40); RDW 17.8 % (11.5-15.5); WBC 5.6 k/uL (3.8-10.6)
== END | disposition home or self-care (01) ==
LOC: LABWHC1 07:13
PROVIDERS: ATTEND Family Medicine
DX: D64.9 Anemia, unspecified (principal)
CPT/HCPCS: 36415; 85027

== ENCOUNTER → 2022-08-02 | Outpatient (CLI) | payer MEDICARE | END | disposition home or self-care (01) | LOC: RADMAMWWP 07:23 | PROVIDERS: ATTEND Family Medicine | DX: Z53.9 Procedure and treatment not carried out, unspecified reason (principal) ==

== ENCOUNTER → 2022-09-30 | Outpatient (CLI) | payer MEDICARE ==
--- NOTE | 2022-09-30 11:30 | BD ---
EXAMINATION TYPE: Axial Bone Density DATE OF EXAM: 09/30/2022 COMPARISON: NONE CLINICAL HISTORY: 77 years year old Female. ICD-10 CODE: M89.9 unsp disorder of bone Height: 57 Weight: 170 FRAX RISK QUESTIONS: Alcohol (3 or more units per day): NO Family History (Parent hip fracture): NO Glucocorticoids (More than 3mos): NO (Ex: prednisone, prednisolone, methylprednisolone, dexamethasone, and hydrocortisone). History of Fracture in Adulthood: NO Rheumatoid Arthritis: NO Current Tobacco Use: NO RISK FACTORS HISTORY OF: Family History of Osteoporosis: YES Active: YES Diet low in dairy products/other sources of calcium: NO Postmenopausal woman: YES Take estrogen and/or progesterone medications: IN PAST How lon Lost more than 2 inches in height since high school: NO MEDICATIONS: Additional Medications: YES REFLUX ,ZOLOFT EXAM MEASUREMENTS: Bone mineral densitometry was performed using the [employer]. Bone mineral density as measured about the Lumbar spine is: ----- L1-L4(G/cm2): 1.037 T Score Values are as follows: ----- L1: -1.6 ----- L2: -1.5 ----- L3: -1.1 ----- L4: -0.9 ----- L1-L4: -1.2 Bone mineral density has: Increased 3.2% since study of: 07/15/2018 Bone mineral density about the R hip (g/cm2): 0.875 Bone mineral density about the L hip (g/cm2): 0.865 T Score values are as follows: -----R Neck: -1.9 -----L Neck: -2.2 -----R Total: -1.1 -----L Total: -1.1 Bone mineral density has: Decreased -3.2% since study of: 07/15/2018 FRAX%s: The graph provided illustrates a 13.7% chance for a major osteoporotic fx and a 3.5% chance f or the hips probability for fx in 10 years time. IMPRESSION: Osteopenia (T Score between -2.5 and -1). There is slightly increased risk of fracture and the patient may be considered for treatment. Re-Screen 2-5 years. NOTE: T-SCORE=SD OF THE YOUNG ADULT MEAN.
== END | disposition home or self-care (01) ==
LOC: RADBDWWP 10:22
PROVIDERS: ATTEND Family Medicine
DX: M85.89 Other specified disorders of bone density and structure, multiple sites (principal); Z78.0 Asymptomatic menopausal state
CPT/HCPCS: 77080

== ENCOUNTER → 2022-10-04 | Outpatient (CLI) | payer MEDICARE ==
--- NOTE | 2022-10-04 16:47 | US ---
EXAMINATION TYPE: US venous doppler duplex LE RT DATE OF EXAM: 10/04/2022 4:30 PM COMPARISON: NONE CLINICAL HISTORY: R60.9 EDEMA, UNSPECIFIED. right foot surgery, right leg pain and edema SIDE PERFORMED: right TECHNIQUE: The lower extremity deep venous system is examined utilizing real time linear array sonog heber with graded compression, doppler sonography and color-flow sonography. VESSELS IMAGED: Common Femoral Vein Deep Femoral Vein Greater Saphenous Vein * Femoral Vein Popliteal Vein Small Saphenous Vein * Proximal Calf Veins (* superficial vessels) Right Leg: no evidence of DVT IMPRESSION: No sign of deep vein thrombosis in the right leg
== END | disposition home or self-care (01) ==
LOC: RADUSWWP 16:07
PROVIDERS: ATTEND Orthopaedic Surgery Foot and Ankle Surgery
DX: Z47.89 Encounter for other orthopedic aftercare (principal); M79.661 Pain in right lower leg; R60.9 Edema, unspecified

== ENCOUNTER 2024-04-24 12:15 | Emergency (ER) | payer MEDICARE ==
[2024-04-24 12:34] VITALS: TEMP 98.5
--- NOTE | 2024-04-24 13:03 | ED ---
General Adult HPI - General Chief complaint: Fall Stated complaint: fell, head abbrasion and hurt left elbow Time Seen by Provider: 04/24/24 12:31 Source: patient, RN notes reviewed Mode of arrival: ambulatory Limitations: physical limitation - History of Present Illness Initial comments: Patient is a pleasant 79-year-old female presenting to the emergency department with concerns for fall. Incident occurred prior to arrival. Patient had socks on and slipped on the floor. Patient did strike the left side of her head gently. No headache. No loss of consciousness. No confusion. No weakness. No visual changes. No nausea or vomiting. Patient did sustain a small laceration by her left eyebrow. Patient also hurt her left elbow. Patient is ambulatory. No neck or back pain. No chest pain or dyspnea. No abdominal pain. Last tetanus immunization was 5 years ago. - Related Data Home Medications Medication Instructions Recorded Confirmed Acetaminophen [Tylenol] 1,000 mg PO BID PRN 06/19/20 06/23/23 Atorvastatin Calcium [Lipitor] 10 mg PO HS 06/19/20 06/23/23 Escitalopram [Lexapro] 10 mg PO DAILY 06/19/20 06/23/23 Previous Rx's Medication Instructions Recorded Pantoprazole [Protonix] 40 mg PO AC-BID #60 tablet. 06/20/20 Allergies Allergy/AdvReac Type Severity Reaction Status Date / Time erythromycin base Allergy Unknown Rash/Hives Verified 04/24/24 12:26 Review of Systems ROS Statement: Those systems with pertinent positive or pertinent negative responses have been documented in the HPI. ROS Other: All systems not noted in ROS Statement are negative. Constitutional: Denies: fever Eyes: Denies: eye pain ENT: Denies: ear pain Respiratory: Denies: cough Cardiovascular: Denies: chest pain Neurological: Denies: headache, weakness, numbness, paresthesias, confusion, abnormal gait, vertigo Past Medical History Past Medical History: Blood Disorder, GERD/Reflux, Osteoarthritis (OA) Additional Past Medical History / Comment(s): Small hiatal hernia, gastritis, bronchitis, fall with bilateral elbow injury, R hand fracture, hemorrhoids. IRON DEFICIENCY ANEMIA. History of Any Multi-Drug Resistant Organisms: None Reported Past Surgical History: Hernia Repair, Orthopedic Surgery, Tonsillectomy, Tubal Ligation Additional Past Surgical History / Comment(s): L knee arthroscopy for meniscus, L elbow injury with fluid removed, R foot lumpectomy, R wrist ganglion cyst, EGD/colonoscopy, Past Anesthesia/Blood Transfusion Reactions: No Reported Reaction Past Psychological History: No Psychological Hx Reported Smoking Status: Never smoker Past Alcohol Use History: None Reported Past Drug Use History: None Reported - Past Family History Mother Family Medical History: Coronary Artery Disease (CAD), Dementia Additional Family Medical History / Comment(s): Mother at the age of 89yrs. She had a problem with vaginal bleeding prior to her that was not able to be worked up. Father Family Medical History: Liver Disease Additional Family Medical History / Comment(s): Father at the age of 46yrs with CIRRHOSIS of the liver. ETOH abuse. General Exam Limitations: no limitations General appearance: alert, in no apparent distress Head exam: Present: normocephalic Eye exam: Present: normal appearance, PERRL, EOMI ENT exam: Present: normal exam Neck exam: Present: normal inspection, full ROM. Absent: tenderness Respiratory exam: Present: normal lung sounds bilaterally Cardiovascular Exam: Present: regular rate, normal rhythm GI/Abdominal exam: Present: soft. Absent: tenderness Extremities exam: Present: tenderness (Mild with swelling left elbow diffusely. Distally the extremity is neurovascular intact.) Neurological exam: Present: alert, oriented X3, CN II-XII intact. Absent: motor sensory deficit Expanded Motor strength exam: RUE: 5, LUE: 5, RLE: 5, LLE: 5 Eye Response: (4) open spontaneously Motor Response: (6) obeys commands Verbal Response: (5) oriented Psychiatric exam: Present: normal affect, normal mood Skin exam: Present: other (Left eyebrow lac) Course Vital Signs 04/24/24 12:19 Temperature 98.5 F Pulse Rate 81 Respiratory 20 Rate Blood Pressure 167/88 O2 Sat by Pulse 98 Oximetry Procedures - Laceration Laceration #1 Consent Obtained: verbal consent Indication: laceration Site: face Size (cm): 2 Description: linear Depth: simple, single layer Pre-repair: irrigated extensively Type of Sutures: other (Closed with Exofin skin tissue adhesive) Patient Tolerated Procedure: well, no complications - Orthopedic Splinting/Casting Injury #1 Side: left Upper Extremity Injury Location: long arm, elbow Medical Decision Making - Medical Decision Making Was pt. sent in by a medical professional or institution (AMANDA Licona, MANUFACTURING SR ENGINEER, urgent care, hospital, or [place] [facility]...) When possible be specific @ -[No] Did you speak to anyone other than the patient for history (EMS, parent, family, police, friend...)? What history was obtained from this source @ -[No] Did you review nursing and triage notes (agree or disagree)? Why? @ -[I reviewed and agree with nursing and triage notes] Were old charts reviewed (outside hosp., previous admission, EMS record, old EKG, old radiological studies, urgent care reports/EKG's, [place] [facility] records)? Report findings @ -[No old charts were reviewed] Differential Diagnosis (chest pain, altered mental status, abdominal pain women, abdominal pain men, vaginal bleeding, weakness, fever, dyspnea, syncope, headache, dizziness, GI bleed, back pain, seizure, CVA, palpatations, mental health, musculoskeletal)? @ -Differential Musculoskeletal Muscular strain, contusion, ligament sprain, fracture, arthritis, septic arthritis, bursitis, cellulitis, muscle spasm, nerve compression, DVT, arterial occlusion, herpes zoster, electrolyte abnormality, tumor.... This is not meant to be in all inclusive list EKG interpreted by me (3pts min.). @ -[As above] X-rays interpreted by me (1pt min.). @ -Left elbow x-ray concerning for nondisplaced radial head fracture CT interpreted by me (1pt min.). @ -[None done] U/S interpreted by me (1pt. min.). @ -[None done] What testing was considered but not performed or refused? (CT, X-rays, U/S, labs)? Why? @ -[None] What meds were considered but not given or refused? Why? @ -[None] Did you discuss the management of the patient with other professionals (professionals i.e. AMANDA Licona, MANUFACTURING SR ENGINEER, lab, RT, psych nurse, protective services social worker, information assistant, teacher, ordnance corps officer, manager rn case)? Give summary @ -[No] Was smoking cessation discussed for >3mins.? @ -[No] Was critical care preformed (if so, how long)? @ -[No] Were there social determinants of health that impacted care today? How? (Homelessness, low income, unemployed, alcoholism, drug addiction, trans portation, low edu. Level, literacy, decrease access to med. care, [place] [facility], rehab)? @ -[No] Was there de-escalation of care discussed even if they declined (Discuss DNR or withdrawal of care, Hospice)? DNR status @ -[No] What co-morbidities impacted this encounter? (DM, HTN, Smoking, COPD, CAD, Cancer, CVA, ARF, Chemo, Hep., AIDS, mental health diagnosis, sleep apnea, morbid obesity)? @ -[None] Was patient admitted / discharged? Hospital course, mention meds given and route, prescriptions, significant lab abnormalities, going to OR and other pertinent info. @ -Splint placed. Laceration repaired. Patient updated on results and need for follow-up. Undiagnosed new problem with uncertain prognosis? @ -[No] Drug Therapy requiring intensive monitoring for toxicity (Heparin, Nitro, Insulin, Cardizem)? @ -[No] Were any procedures done? @ -[No] Diagnosis/symptom? @ -Eyebrow laceration, radial head fracture, minor head injury Acute, or Chronic, or Acute on Chronic? @ -Acute, acute, acute Uncomplicated (without systemic symptoms) or Complicated (systemic symptoms)? @ -[default] Side effects of treatment? @ -[No] Exacerbation, Progression, or Severe Exacerbation? @ -[No] Poses a threat to life or bodily function? How? (Chest pain, [place], [place], pneumonia, PE, COPD, DKA, ARF, appy, cholecystitis, CVA, Diverticulitis, Homicidal, Suicidal, threat to staff... and all critical care pts) @ -[No] Disposition Clinical Impression: Fall, Laceration, Radial head fracture Disposition: HOME SELF-CARE Condition: Stable Instructions (If sedation given, give patient instructions): Skin Adhesive Care (ED), Arm Fracture in Adults (ED) Additional Instructions: Please do follow-up with orthopedics beginning of the week. Please also follow- up with primary care physician beginning the week. Return for confusion, vomiting, weakness, arm or hand problems, worsening or changing symptoms or any other concerns. Is patient prescribed a controlled substance at d/c from ED?: No Referrals: Rex Patel MD [Primary Care Provider] - 1-2 days Sanjay Heath MD [STAFF PHYSICIAN] - 1-2 days Time of Disposition: 14:03
--- NOTE | 2024-04-24 13:44 | XR ---
Left elbow HISTORY: Pain following trauma COMPARISON: None TECHNIQUE: 3 views left elbow were obtained. FINDINGS: There is a joint effusion. There is irregularity of the radial head and a nondisplaced radial head fracture suspected. There are no soft tissue calcifications. IMPRESSION: 1. Probable nondisplaced radial head fracture. 2. Joint effusion.
[2024-04-24] MEDS: TOPICAL SKIN ADHESIVE 1 EACH AMP TOPICAL ONE (14:04)
[2024-04-24 14:12] VITALS: BP 160/79; PULSE 80; RESP 18
== END 2024-04-24 14:06 | disposition home or self-care (01) ==
LOC: EC 12:15
DX: S52.125A Nondisplaced fracture of head of left radius, initial encounter for closed fracture (principal); S01.112A Laceration without foreign body of left eyelid and periocular area, initial encounter; Z88.1 Allergy status to other antibiotic agents; W01.0XXA Fall on same level from slipping, tripping and stumbling without subsequent striking against object, initial encounter
CPT/HCPCS: 12011; 29105; 99283

== ENCOUNTER → 2024-05-18 | Day surgery (SDC) | payer MEDICARE ==
[~2024-05-18] MED LIST: LIDOCAINE 1% (10MG/ML) FOR IV START INTRADERMA PRN; LIDOCAINE 1% INJ 10MG/ML (20 ML MDV) ONE; PROPOFOL 10 MG/ML 20 ML VIAL IV ONE
[2024-05-18] MEDS: IV FLUID CONTINUATION 1,000 ML IV ONE (11:08)
[2024-05-18 11:18] VITALS: TEMP 98.1
[2024-05-18] MEDS: LACTATED RINGERS 1,000 ML IV SCH (11:34)
--- NOTE | 2024-05-18 12:30 | P.PCN ---
Date of Procedure: 05/18/24 Procedure(s) Performed: BRIEF HISTORY: Patient is a 7\81-year-old, pleasant, white female scheduled for upper endoscopy as a part evaluation of GERD for the last few months duration. She has intermittent epigastric pain and chest pain. PROCEDURE PERFORMED: Esophagogastroduodenoscopy with biopsy. PREOPERATIVE DIAGNOSIS: GERD/atypical chest pain. IV sedation per anesthesia. PROCEDURE: After informed consent was obtained, the patient was brought into the endoscopy unit. IV sedation was administered by Anesthesia under continuous monitoring. Initially the Olympus GIF-140 video endoscope was inserted into the mouth. Esophagus intubated without any difficulty. It was gradually advanced into the stomach and duodenum and carefully examined. The bulb and the second part of the duodenum appeared normal. The scope at this time was withdrawn to the stomach, adequately insufflated with air, and upon careful examination, mucosa of the antrum, patchy areas of erythema consistent with gastritis and biopsies were done from this area. Rest of the body, cardia and the fundus appeared normal. The scope was then withdrawn into the esophagus. Small hiatal hernia noted. The GE junction was located at 37 cm from the incisors. There were linear erosions noted in the distal esophagus consistent with LA grade B reflux esophagitis. Biopsies were done from the distal esophagus rest of the esophagus appeared normal and the patient tolerated the procedure well. IMPRESSION: 1. Linear erosions of the distal esophagus consistent with LA grade B reflux esophagitis 2. Small hiatal hernia 3. Mild antral gastritis. RECOMMENDATIONS: The findings of this examination were discussed with the patient as well as her family. She was advised to continue with omeprazole 20 mg daily and follow antireflux measures. Follow-up in the office in 6 weeks..
[2024-05-18 12:53] VITALS: BP 144/86; PULSE 66; RESP 16
== END ==
LOC: ORWHC2ENDO 10:02
PROVIDERS: ATTEND Internal Medicine Gastroenterology
DX: K21.00 Gastro-esophageal reflux disease with esophagitis, without bleeding (principal); K44.9 Diaphragmatic hernia without obstruction or gangrene; K29.70 Gastritis, unspecified, without bleeding; E78.5 Hyperlipidemia, unspecified; Z87.891 Personal history of nicotine dependence; Z88.8 Allergy status to other drugs, medicaments and biological substances; Z79.899 Other long term (current) drug therapy; Z98.890 Other specified postprocedural states
CPT/HCPCS: 43239; J2001; J2704; 88305